=== PATIENT | male | born 1965 | race Caucasian/White ===

== ENCOUNTER 2019-07-15 23:04 | Emergency (ER) | payer MEDICAID, OTHER ==
[~2019-07-15] VITALS: Ht 172.7 cm; Wt 107.0 kg
[2019-07-15 23:27] VITALS: BP 130/84
[2019-07-16] MEDS ORDERED: methylPREDNISolone SS 125 MG in WATER STERILE 2 ML IM ONE (00:05)
[2019-07-16 00:34] VITALS: BP 118/91
== END 2019-07-16 00:34 | disposition home or self-care (01) ==
LOC: MED 23:04
DX: L50.0 Allergic urticaria (principal)
CPT/HCPCS: 96372; 99283; J2930